=== PATIENT | female | born 2000 | race Two or more races ===

== ENCOUNTER 2025-04-07 21:24 | Emergency (ER) | payer SELFPAY ==
[~2025-04-07] VITALS: Ht 165.1 cm; Wt 55.8 kg
[2025-04-08 00:04] LABS: BASOPHILS 0.4 % (0.1-1.2); EOSINOPHILS 0.8 % (0.7-5.8); LYMPHOCYTES 28.9 % (19.3-51.7); MCH 31.7 PG (25.6-32.2); MCHC 33.7 g/dL (32.2-35.5); MCV 94.0 fL (79.4-94.8); MONOCYTES 7.1 % (4.7-12.5); NEUTROPHILS 62.6 % (34.0-71.1); RBC 4.17 M/uL (3.93-5.22)
[2025-04-08 00:19] LABS: ALT (SGPT) 14.0 U/L (14-59); AST (SGOT) 11.0 U/L (15-37); GLOMERULAR FILTRATION RATE,EST 123.0 mL/min (>60); PROTEIN, TOTAL 7.1 g/dL (6.4-8.2); UREA NITROGEN 11.0 mg/dL (7-18)
[2025-04-08] MEDS ORDERED: DIPHENOXYLATE/ATROPINE 1 EA TAB PO ONE (00:30)
[2025-04-08] MEDS ORDERED: LOMOTIL TABLET1 EACH PO (00:33)
[2025-04-08] MEDS ORDERED: DICYCLOMINE HCL10 MG PO (00:33)
[2025-04-08] MEDS ORDERED: LACTASE3000 UNI1 PO (00:35)
[2025-04-08] MEDS ORDERED: hydrOXYzine pamoate 50 MG HOME.PACK PO ONE (00:45)
[2025-04-08] MEDS ORDERED: HYDROXYZINE HCL25 MG PO (00:46)
[2025-04-08 01:19] VITALS: BP 115/82
== END 2025-04-08 01:21 | disposition home or self-care (01) ==
LOC: ED 21:24
PROVIDERS: Family Medicine
DX: K58.0 Irritable bowel syndrome with diarrhea (principal); E73.9 Lactose intolerance, unspecified
CPT/HCPCS: 36415; 80053; 84703; 85025; 99284